=== PATIENT | male | born 2000 | race Caucasian/White ===

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

== ENCOUNTER 2024-12-21 09:51 | Outpatient (CLI) | payer OTHER | END 2024-12-21 09:53 | disposition home or self-care (01) | LOC: RAD 09:51 | PROVIDERS: ATTEND Orthopaedic Surgery | DX: M79.644 Pain in right finger(s) (principal) ==